=== PATIENT | male | born 1945 | race African-American/Black ===

== ENCOUNTER 2017-10-27 22:44 | Inpatient (IN) | payer MEDICARE, MEDICAID ==
[~2017-10-27] VITALS: Ht 182.9 cm; Wt 100.2 kg
--- NOTE | 2017-10-27 22:54 | NUR ---
TO BED 3 BIB PRIVATE AMBULANCE FROM [employer] [facility] FOR MED CLEARANCE. PT ON 5150 HOLD BY [employer]. PT AAOX2 NO ACUTE DISTRESS NOTED, RESP EVEN AND UNLABORED. PLACE PT ON CARDIAC MONITORING, CONTINUOUS POX. ER MD AT BEDSIDE TO EVAL PT WITH ORDERS RECEIVED.
[2017-10-27] MEDS ORDERED: PANT20TA2 PO (22:58)
[2017-10-27] MEDS ORDERED: LOSA50TA21 PO (22:58)
[2017-10-27] MEDS ORDERED: METO-357 PO (22:58)
[2017-10-27] MEDS ORDERED: DICY10CA59 PO (22:58)
[2017-10-27] MEDS ORDERED: ATOR80TA PO (22:58)
[2017-10-27] MEDS ORDERED: DOCU100C36 PO (22:58)
[2017-10-27] MEDS ORDERED: CLOP75TA15 PO (22:58)
[2017-10-27] MEDS ORDERED: FERR-58 PO (22:58)
[2017-10-27] MEDS ORDERED: LORAZEPAM INJ 2 MG/ML VIAL ONE (23:04)
[2017-10-27 23:26] LABS: BASOPHILS % (AUTO) 0.8 % (0.0-2.0); EOSINOPHILS # (AUTO) 0.1 /CMM (0.0-0.7); EOSINOPHILS % (AUTO) 0.9 % (0.0-6.0); HEMATOCRIT 31 % (39-51); HEMOGLOBIN 10.3 g/dL (13.5-17.5); LYMPHOCYTES # (AUTO) 1.3 /CMM (0.8-4.8); LYMPHOCYTES % (AUTO) 23.6 % (20.0-44.0); MEAN CORPUSCULAR HEMOGLOBIN 30 PG (26.0-33.0); MEAN CORPUSCULAR HGB CONC 34 g/dl (31.0-36.0); MEAN CORPUSCULAR VOLUME 88 fL (80-96); MONOCYTES # (AUTO) 0.1 /CMM (0.1-1.30); MONOCYTES % (AUTO) 1.2 % (2.0-12.0); NEUTROPHILS # (AUTO) 4.1 /CMM (1.8-8.9); NEUTROPHILS % (AUTO) 73.5 % (43.0-81.0); PLATELET COUNT (AUTO) 178 /CMM (150-450); RDW COEFFICIENT OF VARIATION 14.6 (11.5-15.0); RED BLOOD CELL COUNT(AUTO) 3.46 MIL/uL (4.5-6.0); WHITE BLOOD COUNT (AUTO) 5.6 K/uL (4.3-11.0)
[2017-10-27 23:28] LABS: CALCIUM, SERUM 9.4 mg/dL (8.5-10.1); CARBON DIOXIDE 22 mmol/L (21-32); CHLORIDE 112 mmol/L (98-107); CREATININE 1.7 mg/dL (0.6-1.3); GLUCOSE 105 mg/dL (74-106); POTASSIUM 3.7 mmol/L (3.5-5.1); SODIUM SERUM 149 mmol/L (136-145); UREA NITROGEN, BLOOD 23 mg/dL (7-18)
[2017-10-27] MEDS ORDERED: LORAZEPAM INJ 2 MG/ML VIAL IM ONE (23:30)
[2017-10-27 23:35] LABS: ACETAMINOPHEN 0 ug/ml (10-30); ALANINE AMINOTRANSFERASE 22 U/L (12-78); ALBUMIN 3.7 g/dL (3.4-5.0); ALCOHOL, BLOOD < 3 mg/dL (0-0); ALKALINE PHOSPHATASE 69 U/L (46-116); ASPARTATE AMINOTRANSFERASE 20 U/L (15-37); BILIRUBIN,DIRECT 0.1 mg/dL (0.0-0.2); BILIRUBIN,TOTAL 0.3 mg/dL (0.2-1.0); SALICYLATE 2.2 mg/dL (2.8-20.0)
--- NOTE | 2017-10-27 23:54 | NUR ---
REPORT CALLED TO JAZMYNE RODGERS. WILL TRANSPORT PT ROOM 215.
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
[2017-10-28] MEDS ORDERED: MAG HYDROX/AL HYDROX/SIMETH 30 ML UDC PO PRN (00:30)
[2017-10-28] MEDS ORDERED: ACETAMINOPHEN 325 MG TABLET PO PRN (00:30)
[2017-10-28] MEDS ORDERED: MAGNESIUM HYDROXIDE 30 ML UDC PO PRN (00:30)
[2017-10-28 00:38] VITALS: BP 151/66
--- NOTE | 2017-10-28 07:04 | NUR ---
GPS RN NOTE: RESPONSIBLE DEMOCRAT NOTIFIED OF THE ADMISSION
[2017-10-28] MEDS: PANTOPRAZOLE 40 MG TABLET.DR PO SCH (07:30)
[2017-10-28 08:00] VITALS: BP 131/78
[2017-10-28] MEDS: FERROUS SULFATE (325 MG) 325 MG/TAB TABLET PO SCH (09:00)
[2017-10-28] MEDS: METOPROLOL SUCCINATE 50 MG TAB.SR.24H PO SCH (09:00)
[2017-10-28] MEDS: CLOPIDOGREL BISULFATE 75 MG TABLET PO SCH (09:00)
[2017-10-28] MEDS: DOCUSATE SODIUM 100 MG CAPSULE PO SCH (09:00)
[2017-10-28] MEDS: DICYCLOMINE HCL 10 MG CAPSULE PO SCH ×3 (09:00→16:01)
[2017-10-28] MEDS: LOSARTAN POTASSIUM 50 MG TABLET PO SCH (09:00)
--- NOTE | 2017-10-28 10:17 | NUR ---
RN-CO: DR HARPER ORDERED 1:1 SITTER FOR DTS, VERY DELUSIONAL.
[2017-10-28] MEDS: OLANZAPINE 2.5 MG TABLET PO SCH ×2 (10:30→16:01)
[2017-10-28 11:46] LABS: CREATININE 1.4 mg/dL (0.6-1.3)
[2017-10-28 16:00] VITALS: BP 159/77
[2017-10-28 20:39] VITALS: BP 153/77
[2017-10-28] MEDS: ATORVASTATIN 40 MG TABLET PO SCH (21:31)
[2017-10-29 08:00] VITALS: BP 149/66
[2017-10-29] MEDS: LOSARTAN POTASSIUM 50 MG TABLET PO SCH (08:14)
[2017-10-29] MEDS: OLANZAPINE 2.5 MG TABLET PO SCH ×2 (08:14→17:10)
[2017-10-29] MEDS: DICYCLOMINE HCL 10 MG CAPSULE PO SCH ×3 (08:14→17:10)
[2017-10-29] MEDS: FERROUS SULFATE (325 MG) 325 MG/TAB TABLET PO SCH (08:14)
[2017-10-29] MEDS: DOCUSATE SODIUM 100 MG CAPSULE PO SCH (08:14)
[2017-10-29] MEDS: CLOPIDOGREL BISULFATE 75 MG TABLET PO SCH (08:14)
[2017-10-29] MEDS: PANTOPRAZOLE 40 MG TABLET.DR PO SCH (08:14)
[2017-10-29] MEDS: METOPROLOL SUCCINATE 50 MG TAB.SR.24H PO SCH (08:15)
[2017-10-29 10:02] LABS: CHOLESTEROL 149 mg/dL (<200); HDL CHOLESTEROL 45 mg/dL (40-60); LDL 89 mg/dL (0-99); TRIGLYCERIDES 117 mg/dL (30-150)
--- NOTE | 2017-10-29 14:34 | NUR ---
Discharge Planning: SW called and left a voicemail for patient's step-daughter, Karen Toney, . SW provided her direct contact information in the voicemail.
[2017-10-29 16:00] VITALS: BP 133/61
--- NOTE | 2017-10-29 16:10 | NUR ---
SW attempted to conduct the psychosocial assessment with patient today. However, patient is hard of hearing and does not understand the questions posed, even when the questions are rephrased or written out for him. Patient seems to be confused. SW to make another attempt to conduct assessment tomorrow morning [before 72-hours].
--- NOTE | 2017-10-29 16:19 | NUR ---
Discharge Planning: SW spoke with patient's step-daughter, Karen Toney, and obtained collateral information.
--- NOTE | 2017-10-29 16:32 | NUR ---
Initial Discharge Note: Patient resides at [address] [place], [place] [id number]. Patient lives with his family. Patient's family would like for him to return home upon discharge. SW spoke with patient's stepdaughter, Karen [phone]. Karen stated that the family will provide care of the patient and that they want to take him home once he is stabilized. SW to follow up with MD and to facilitate safe and proper discharge.
[2017-10-29 20:00] VITALS: BP 128/63
[2017-10-29] MEDS: ATORVASTATIN 40 MG TABLET PO SCH (21:35)
[2017-10-30] MEDS: PANTOPRAZOLE 40 MG TABLET.DR PO SCH (07:45)
[2017-10-30 08:00] VITALS: BP 132/76
[2017-10-30] MEDS: CLOPIDOGREL BISULFATE 75 MG TABLET PO SCH (08:40)
[2017-10-30] MEDS: LOSARTAN POTASSIUM 50 MG TABLET PO SCH (08:40)
[2017-10-30] MEDS: DOCUSATE SODIUM 100 MG CAPSULE PO SCH (08:41)
[2017-10-30] MEDS: FERROUS SULFATE (325 MG) 325 MG/TAB TABLET PO SCH (08:41)
[2017-10-30] MEDS: DICYCLOMINE HCL 10 MG CAPSULE PO SCH ×3 (08:41→16:07)
[2017-10-30] MEDS: METOPROLOL SUCCINATE 50 MG TAB.SR.24H PO SCH (08:41)
[2017-10-30] MEDS: OLANZAPINE 2.5 MG TABLET PO SCH ×2 (08:41→16:07)
[2017-10-30] MEDS: SERTRALINE HCL 25 MG TABLET PO SCH (13:47)
[2017-10-30 16:00] VITALS: BP 138/64
[2017-10-30 20:00] VITALS: BP 114/57
[2017-10-30] MEDS: ATORVASTATIN 40 MG TABLET PO SCH (21:19)
[2017-10-31] MEDS: PANTOPRAZOLE 40 MG TABLET.DR PO SCH (07:25)
[2017-10-31 08:05] VITALS: BP 142/57
[2017-10-31] MEDS: DICYCLOMINE HCL 10 MG CAPSULE PO SCH ×3 (08:19→16:20)
[2017-10-31] MEDS: FERROUS SULFATE (325 MG) 325 MG/TAB TABLET PO SCH (08:20)
[2017-10-31] MEDS: LOSARTAN POTASSIUM 50 MG TABLET PO SCH (08:20)
[2017-10-31] MEDS: OLANZAPINE 2.5 MG TABLET PO SCH ×2 (08:20→16:20)
[2017-10-31] MEDS: CLOPIDOGREL BISULFATE 75 MG TABLET PO SCH (08:20)
[2017-10-31] MEDS: DOCUSATE SODIUM 100 MG CAPSULE PO SCH (08:20)
[2017-10-31] MEDS: METOPROLOL SUCCINATE 50 MG TAB.SR.24H PO SCH (08:20)
[2017-10-31] MEDS: SERTRALINE HCL 25 MG TABLET PO SCH (08:21)
[2017-10-31 15:48] VITALS: BP 155/83
[2017-10-31 20:00] VITALS: BP 159/84
[2017-10-31] MEDS: ATORVASTATIN 40 MG TABLET PO SCH (21:25)
[2017-11-01] MEDS: PANTOPRAZOLE 40 MG TABLET.DR PO SCH (07:53)
[2017-11-01 08:54] VITALS: BP 148/71
[2017-11-01] MEDS: OLANZAPINE 2.5 MG TABLET PO SCH ×3 (08:55→17:48)
[2017-11-01] MEDS: SERTRALINE HCL 25 MG TABLET PO SCH (08:55)
[2017-11-01] MEDS: CLOPIDOGREL BISULFATE 75 MG TABLET PO SCH (08:55)
[2017-11-01] MEDS: METOPROLOL SUCCINATE 50 MG TAB.SR.24H PO SCH (08:55)
[2017-11-01] MEDS: LOSARTAN POTASSIUM 50 MG TABLET PO SCH (08:56)
[2017-11-01] MEDS: DICYCLOMINE HCL 10 MG CAPSULE PO SCH ×3 (08:56→17:48)
[2017-11-01] MEDS: DOCUSATE SODIUM 100 MG CAPSULE PO SCH (08:56)
[2017-11-01] MEDS: FERROUS SULFATE (325 MG) 325 MG/TAB TABLET PO SCH (08:56)
[2017-11-01 16:00] VITALS: BP 131/61
--- NOTE | 2017-11-01 17:19 | NUR ---
PATIENT WAS OBSERVED PERIODICALLY AND ASSESSED THROUGHOUT THE SHIFT FOR SUICIDAL IDEATION. PATIENT STATED THAT HE NO LONGER IS SUICIDAL. 1:1 NOT NEEDED.
[2017-11-01 19:39] VITALS: BP 119/60
[2017-11-01] MEDS: ATORVASTATIN 40 MG TABLET PO SCH (21:37)
[2017-11-02] MEDS: PANTOPRAZOLE 40 MG TABLET.DR PO SCH (07:30)
[2017-11-02 08:27] VITALS: BP 200/79
--- NOTE | 2017-11-02 08:39 | NUR ---
RN-CO: PAGED DR HARPER AND DR JOHNSON TO INFORM THAT WE CALLED CODE STROKE FOR THE PATIENT. CODE STAFF AT BED SIDE AT THIS TIME. AWAITING TO CALL BACK.
--- NOTE | 2017-11-02 08:42 | NUR ---
RN-CO: DR JOHNSON CALLED BACK AND NOTIFIED HIM THAT PATIENT WAS TRANSFERRED TO ICU FOR FURTHER EVALUATION FOR POSSIBLE STROKE V/S ARE FOLLOWS 200/79, 96, 97%, PATIENT IS UNRESPONSIVE WITH TONGUE OUT, ALSO INFORMED MD THAT WE CALLED CODE STROKE AT 0827 AM, BLOOD SUGAR WAS 105. DR HARPER CALLED BACK WITH ORDER TO DISCONTINUE HOLD AND DISCHARGE PATIENT .
--- NOTE | 2017-11-02 08:48 | NUR ---
RN-CO: TE NAGY () NOTIFIED.
[2017-11-02] MEDS: DOCUSATE SODIUM 100 MG CAPSULE PO SCH (09:00)
[2017-11-02] MEDS: OLANZAPINE 2.5 MG TABLET PO SCH ×2 (09:00→13:00)
[2017-11-02] MEDS: SERTRALINE HCL 25 MG TABLET PO SCH (09:00)
[2017-11-02] MEDS: CLOPIDOGREL BISULFATE 75 MG TABLET PO SCH (09:00)
[2017-11-02] MEDS: FERROUS SULFATE (325 MG) 325 MG/TAB TABLET PO SCH (09:00)
[2017-11-02] MEDS: DICYCLOMINE HCL 10 MG CAPSULE PO SCH ×2 (09:00→13:00)
--- NOTE | 2017-11-02 09:00 | NUR ---
FRONT DESK MONITOR- INITIAL NOTE. RECEIVED PT FROM GPS, S/P RAPID RESPONSE/ CODE STROKE. PT ARRIVED TO FLOOR VIA BED FROM CT SCAN. PT UNRESPONSIVE, DOES NOT OPEN EYES OR FOLLOW COMMANDS. 904- UPON ASSESSMENT AND ATTACHING PT TO BEDSIDE MONITOR, PT NOTED MOVING BUE AND OPENING EYES. PT WAKING UP, ATTEMPTING TO HIT STAFF, GET OUT OF BED AND VERBALLY YELLING. SAFETY MEASURES IN PLACE. 914- CALLED DR. JOHNSON AND UPDATED MD ON PT'S CHANGE OF CONDITION. PT RESTLESS. HOSPITAL MONITOR AT BEDSIDE. MD STATES HE WILL COME IN TO EVALUATE PATIENT. 924- DR. HARPER CALLED ICU UNIT. UPDATED MD ON PT'S CONDITION. MD STATES SHE WILL EVALUATE PATIENT. 929- PT NOW SLEEPING, RESTING COMFORTABLY IN BED (NO MEDS WERE GIVEN). NO LONGER RESTLESS & YELLING. HOSPITAL MONITOR AT BEDSIDE. 934- DR. JOHNSON AT BEDSIDE. UPDATED MD ON PT'S CONDITION. PT STILL SLEEPING. PER MD, OK TO TRANSFER PT BACK TO [facility]. LILIANA NUNEZ NURSE AT BEDSIDE AND AWARE. 1040- PT REMAINS IN BED, SLEEPING. WILL CONTINUE TO MONITOR. Addendum: 11/02/17 at 1045 by ALBIN MCCLURE RN 1020- PER NURSING LIQUOR BRIDGE OPERATOR HELPER, ELIZABETH SNEED, PT DOES NOT TO BE RE-ADMITTED TO ICU. OK TO BE TRANSFERRED TO [facility] UNIT PER DR. JOHNSON WITH PREVIOUS ORDERS/CHART. VITAL SIGNS STABLE. LABS WNL. CT SCAN NEGATIVE. MRI RECOMMENDED BUT UNABLE TO PERFORM DUE TO METALS.
[2017-11-02 09:30] VITALS: BP 161/93
[2017-11-02 09:33] LABS: BASOPHILS % (AUTO) 0.1 % (0.0-2.0); CALCIUM, SERUM 9.3 mg/dL (8.5-10.1); CARBON DIOXIDE 25 mmol/L (21-32); CHLORIDE 104 mmol/L (98-107); CREATININE 1.4 mg/dL (0.6-1.3); EOSINOPHILS # (AUTO) 0.1 /CMM (0.0-0.7); EOSINOPHILS % (AUTO) 1.6 % (0.0-6.0); GLUCOSE 126 mg/dL (74-106); HEMATOCRIT 29 % (39-51); HEMOGLOBIN 9.7 g/dL (13.5-17.5); LYMPHOCYTES # (AUTO) 1.6 /CMM (0.8-4.8); MEAN CORPUSCULAR HEMOGLOBIN 30 PG (26.0-33.0); MEAN CORPUSCULAR HGB CONC 34 g/dl (31.0-36.0); MEAN CORPUSCULAR VOLUME 89 fL (80-96); MONOCYTES # (AUTO) 0.4 /CMM (0.1-1.30); NEUTROPHILS # (AUTO) 4.1 /CMM (1.8-8.9); NEUTROPHILS % (AUTO) 65.3 % (43.0-81.0); PLATELET COUNT (AUTO) 166 /CMM (150-450); POTASSIUM 4.1 mmol/L (3.5-5.1); RDW COEFFICIENT OF VARIATION 14.6 (11.5-15.0); RED BLOOD CELL COUNT(AUTO) 3.25 MIL/uL (4.5-6.0); SODIUM SERUM 139 mmol/L (136-145); UREA NITROGEN, BLOOD 33 mg/dL (7-18); WHITE BLOOD COUNT (AUTO) 6.2 K/uL (4.3-11.0)
[2017-11-02 09:42] LABS: INR 0.99 (0.87-1.13)
--- NOTE | 2017-11-02 09:54 | NUR ---
RN-CO: DR HARPER NOTIFIED THAT PATIENT WILL BE BACK AT THE UNIT. DR HARPER ORDERED TO CONTINUE [address] JOHNSON TOO. TE WAS ALSO INFORMED.
[2017-11-02 10:26] VITALS: BP 200/79
[2017-11-02 10:30] VITALS: BP 157/73
--- NOTE | 2017-11-02 11:00 | NUR ---
ABA THERAPIST- REPORT GIVEN TO GEOVANNY CHARGE NURSE IN GPS. 1115- PT TRANSFERRED TO [facility] ROOM 216-1.
--- NOTE | 2017-11-02 11:08 | NUR ---
RN-CO: PATIENT IS BACK IN GPS FROM THE ICU,PER DR JOHNSON'S ORDER. REPORT WAS GIVEN BY KARI. PT WAS WHEELED TO ROOM 216 A, ASLEEP, RESPIRATION EVEN AND UNLABORED,SKIN WARM AND DRY TO TOUCH. PER KARI RN IN ICU, CT SCAN WAS TAKEN AND RESULTED NEGATIVE, PT WAS THEN UNRESPONSIVE BUT BREATHING REGULARLY. THEN AT 9:05 HE WOKE UP, MOVED, OPENED HIS EYES,TALKED, YELLED AND BECAME COMBATIVE. PER KAIR NO MEDICATIONS WAS GIVEN AT ICU, THEN PT WENT BACK TO SLEEP AT [address] HARPER ORDERED TO PUT BACK THE HOLD AND RESUME HIS PSYCH MEDS. TE , IS AWARE.
--- NOTE | 2017-11-02 11:40 | NUR ---
RN NOTE :PATIENT FOUND ON THE FLOOR BY STAFF COMMUNICATIONS CLERK , PATIENT ALERT ,NO C/O PAIN ,NO BRUISE OR BUMP SEEN AND DR. HARPER NOTIFIED ,BODY ASSESSMENT DONE ABLE TO MOVE UPPER AND LOWER EXTREMITIES ,NO SKIN TEAR NOTED VS STABLE BP 137/78 ,PULSE 88,TEMP 98.7 RESPIRATION 18 O2 SAT 99%.NEW ,PLACE PATIENT ON 1:1 SITTER FOR FALL PRECAUTION.WILL CONTINUE TO MONITOR FOR SAFETY Q15 MINUTES .
[2017-11-02] MEDS: LOSARTAN POTASSIUM 50 MG TABLET PO SCH (15:11)
[2017-11-02 15:12] VITALS: BP 157/87
[2017-11-02] MEDS: METOPROLOL SUCCINATE 50 MG TAB.SR.24H PO SCH (15:12)
== END 2017-11-02 08:45 | disposition home or self-care (01) | DRG 885 ==
LOC: ER 22:45 → GPS 23:37 → UNDODISIN 11-02 08:40
PROVIDERS: ADMIT Psychiatry & Neurology Psychosomatic Medicine; ATTEND Psychiatry & Neurology Psychosomatic Medicine
DX: F29 Unspecified psychosis not due to a substance or known physiological condition (principal); E66.9 Obesity, unspecified; E78.5 Hyperlipidemia, unspecified; F41.9 Anxiety disorder, unspecified; Z79.899 Other long term (current) drug therapy; Z86.73 Personal history of transient ischemic attack (TIA), and cerebral infarction without residual deficits; I10 Essential (primary) hypertension; K21.9 Gastro-esophageal reflux disease without esophagitis; I25.10 Atherosclerotic heart disease of native coronary artery without angina pectoris; F32.9 Major depressive disorder, single episode, unspecified; H91.90 Unspecified hearing loss, unspecified ear
CPT/HCPCS: 36415; 70450-TC; 80048-TC; 80061-TC; 80076-TC; 82565-TC; 82962-TC; 84484-TC; 85025-TC; 85730-TC; 86850-TC; A4606; G0480; J2060

== ENCOUNTER 2017-11-02 10:12 | Inpatient (IN) | payer MEDICARE, MEDICAID ==
[~2017-11-02 10:12] MED LIST: ATOR80TA PO; CLOP75TA15 PO; DICY10CA59 PO; DOCU100C36 PO; FERR-58 PO; LOSA50TA21 PO; METO-357 PO; PANT20TA2 PO
== END 2017-11-02 15:47 | DRG 885 ==
LOC: ICU 10:12
PROVIDERS: ADMIT Internal Medicine; ATTEND Internal Medicine
DX: F29 Unspecified psychosis not due to a substance or known physiological condition (principal); G93.40 Encephalopathy, unspecified; R45.851 Suicidal ideations; I10 Essential (primary) hypertension; Z73.6 Limitation of activities due to disability; I25.10 Atherosclerotic heart disease of native coronary artery without angina pectoris; K21.9 Gastro-esophageal reflux disease without esophagitis; Z86.73 Personal history of transient ischemic attack (TIA), and cerebral infarction without residual deficits; E78.5 Hyperlipidemia, unspecified; E66.9 Obesity, unspecified; F41.9 Anxiety disorder, unspecified; F32.9 Major depressive disorder, single episode, unspecified

== ENCOUNTER 2017-11-02 15:44 | Inpatient (IN) | payer MEDICARE, MEDICAID ==
[~2017-11-02] VITALS: Ht 182.9 cm; Wt 100.2 kg
[2017-11-02 16:00] VITALS: BP 146/78
[2017-11-02] MEDS ORDERED: ACETAMINOPHEN 325 MG TABLET PO PRN (17:00)
[2017-11-02] MEDS ORDERED: MAG HYDROX/AL HYDROX/SIMETH 30 ML UDC PO PRN (17:00)
[2017-11-02] MEDS ORDERED: TEMAZEPAM 7.5 MG CAPSULE PO PRN (17:00)
[2017-11-02] MEDS ORDERED: MAGNESIUM HYDROXIDE 30 ML UDC PO PRN (17:00)
[2017-11-02 19:58] VITALS: BP 151/71
[2017-11-03 07:36] LABS: ALANINE AMINOTRANSFERASE 32 U/L (12-78); ALBUMIN 3.1 g/dL (3.4-5.0); ALKALINE PHOSPHATASE 60 U/L (46-116); ASPARTATE AMINOTRANSFERASE 34 U/L (15-37); BILIRUBIN,TOTAL 0.5 mg/dL (0.2-1.0); CALCIUM, SERUM 8.8 mg/dL (8.5-10.1); CARBON DIOXIDE 27 mmol/L (21-32); CHLORIDE 108 mmol/L (98-107); CREATININE 1.5 mg/dL (0.6-1.3); GLUCOSE 93 mg/dL (74-106); POTASSIUM 3.9 mmol/L (3.5-5.1); SODIUM SERUM 144 mmol/L (136-145); TOTAL PROTEIN, SERUM 6.9 g/dL (6.4-8.2); UREA NITROGEN, BLOOD 29 mg/dL (7-18)
[2017-11-03 07:42] LABS: CHOLESTEROL 141 mg/dL (<200); HDL CHOLESTEROL 47 mg/dL (40-60); LDL 81 mg/dL (0-99); TRIGLYCERIDES 95 mg/dL (30-150)
[2017-11-03 08:01] VITALS: BP_SYST 133; BP_SYST 144; BP_DIAS 69; BP_DIAS 72
[2017-11-03 16:00] VITALS: BP 145/70
[2017-11-03 19:59] VITALS: BP 140/78
[2017-11-04 08:00] VITALS: BP 145/72
[2017-11-04] MEDS: LORAZEPAM 0.5 MG TABLET PO PRN (10:23)
[2017-11-04] MEDS: OLANZAPINE 2.5 MG TABLET PO SCH ×2 (10:23→16:17)
[2017-11-04] MEDS: DICYCLOMINE HCL 10 MG CAPSULE PO SCH ×2 (12:27→16:17)
[2017-11-04 16:00] VITALS: BP 118/62
[2017-11-04 20:00] VITALS: BP 141/72
[2017-11-04 20:16] VITALS: BP 141/72
[2017-11-04] MEDS: ATORVASTATIN 40 MG TABLET PO SCH (21:30)
[2017-11-05 08:00] VITALS: BP 137/68
[2017-11-05] MEDS: PANTOPRAZOLE 40 MG TABLET.DR PO SCH (08:33)
[2017-11-05] MEDS: DICYCLOMINE HCL 10 MG CAPSULE PO SCH ×3 (08:34→16:55)
[2017-11-05] MEDS: OLANZAPINE 2.5 MG TABLET PO SCH ×5 (08:34→21:45)
[2017-11-05] MEDS: FERROUS SULFATE (325 MG) 325 MG/TAB TABLET PO SCH (08:37)
[2017-11-05] MEDS: DOCUSATE SODIUM 100 MG CAPSULE PO SCH (08:37)
[2017-11-05] MEDS: CLOPIDOGREL BISULFATE 75 MG TABLET PO SCH (08:37)
[2017-11-05] MEDS: METOPROLOL SUCCINATE 50 MG TAB.SR.24H PO SCH (08:38)
[2017-11-05] MEDS: LOSARTAN POTASSIUM 50 MG TABLET PO SCH (08:38)
[2017-11-05 15:46] VITALS: BP 136/69
[2017-11-05 20:00] VITALS: BP 119/63
[2017-11-05] MEDS: ATORVASTATIN 40 MG TABLET PO SCH (21:45)
[2017-11-06 08:00] VITALS: BP 134/80
[2017-11-06] MEDS: FERROUS SULFATE (325 MG) 325 MG/TAB TABLET PO SCH (08:52)
[2017-11-06] MEDS: CLOPIDOGREL BISULFATE 75 MG TABLET PO SCH (08:53)
[2017-11-06] MEDS: DICYCLOMINE HCL 10 MG CAPSULE PO SCH ×3 (08:53→16:37)
[2017-11-06] MEDS: DOCUSATE SODIUM 100 MG CAPSULE PO SCH (08:53)
[2017-11-06] MEDS: LOSARTAN POTASSIUM 50 MG TABLET PO SCH (08:53)
[2017-11-06] MEDS: PANTOPRAZOLE 40 MG TABLET.DR PO SCH (08:53)
[2017-11-06] MEDS: OLANZAPINE 2.5 MG TABLET PO SCH ×4 (08:53→16:37)
[2017-11-06] MEDS: METOPROLOL SUCCINATE 50 MG TAB.SR.24H PO SCH (08:54)
[2017-11-06 16:00] VITALS: BP_SYST 104; BP_SYST 113; BP_DIAS 56; BP_DIAS 78
[2017-11-06 20:00] VITALS: BP 118/58
[2017-11-06] MEDS: ATORVASTATIN 40 MG TABLET PO SCH (21:16)
[2017-11-07] MEDS: PANTOPRAZOLE 40 MG TABLET.DR PO SCH (07:51)
[2017-11-07 08:00] VITALS: BP 139/68
[2017-11-07] MEDS: DICYCLOMINE HCL 10 MG CAPSULE PO SCH ×3 (08:23→16:45)
[2017-11-07] MEDS: DOCUSATE SODIUM 100 MG CAPSULE PO SCH (08:23)
[2017-11-07] MEDS: CLOPIDOGREL BISULFATE 75 MG TABLET PO SCH (08:23)
[2017-11-07] MEDS: FERROUS SULFATE (325 MG) 325 MG/TAB TABLET PO SCH (08:23)
[2017-11-07] MEDS: OLANZAPINE 2.5 MG TABLET PO SCH ×3 (08:23→16:45)
[2017-11-07] MEDS: METOPROLOL SUCCINATE 50 MG TAB.SR.24H PO SCH (08:23)
[2017-11-07] MEDS: LOSARTAN POTASSIUM 50 MG TABLET PO SCH (08:24)
[2017-11-07] MEDS: LORAZEPAM 0.5 MG TABLET PO PRN (15:49)
[2017-11-07 16:00] VITALS: BP 145/96
[2017-11-07 20:00] VITALS: BP 137/65
[2017-11-07] MEDS: ATORVASTATIN 40 MG TABLET PO SCH (21:11)
[2017-11-08 08:00] VITALS: BP 127/70
[2017-11-08] MEDS: DICYCLOMINE HCL 10 MG CAPSULE PO SCH ×3 (09:30→16:51)
[2017-11-08] MEDS: FERROUS SULFATE (325 MG) 325 MG/TAB TABLET PO SCH (09:30)
[2017-11-08] MEDS: DOCUSATE SODIUM 100 MG CAPSULE PO SCH (09:31)
[2017-11-08] MEDS: OLANZAPINE 2.5 MG TABLET PO SCH ×3 (09:31→16:51)
[2017-11-08] MEDS: LOSARTAN POTASSIUM 50 MG TABLET PO SCH (09:31)
[2017-11-08] MEDS: METOPROLOL SUCCINATE 50 MG TAB.SR.24H PO SCH (09:31)
[2017-11-08] MEDS: CLOPIDOGREL BISULFATE 75 MG TABLET PO SCH (09:31)
[2017-11-08] MEDS: PANTOPRAZOLE 40 MG TABLET.DR PO SCH (09:32)
[2017-11-08] MEDS: SERTRALINE HCL 25 MG TABLET PO SCH (09:35)
[2017-11-08] MEDS: LORAZEPAM 0.5 MG TABLET PO PRN ×2 (09:38→16:51)
[2017-11-08 16:07] VITALS: BP 109/58
[2017-11-08 19:53] VITALS: BP 121/63
[2017-11-08] MEDS: ATORVASTATIN 40 MG TABLET PO SCH (21:48)
[2017-11-09 08:00] VITALS: BP 125/62
[2017-11-09] MEDS: CLOPIDOGREL BISULFATE 75 MG TABLET PO SCH (08:39)
[2017-11-09] MEDS: DICYCLOMINE HCL 10 MG CAPSULE PO SCH ×2 (08:39→13:30)
[2017-11-09] MEDS: OLANZAPINE 2.5 MG TABLET PO SCH ×2 (08:39→13:30)
[2017-11-09] MEDS: FERROUS SULFATE (325 MG) 325 MG/TAB TABLET PO SCH (08:39)
[2017-11-09] MEDS: METOPROLOL SUCCINATE 50 MG TAB.SR.24H PO SCH (08:40)
[2017-11-09] MEDS: PANTOPRAZOLE 40 MG TABLET.DR PO SCH (08:40)
[2017-11-09] MEDS: DOCUSATE SODIUM 100 MG CAPSULE PO SCH (08:40)
[2017-11-09] MEDS: LOSARTAN POTASSIUM 50 MG TABLET PO SCH (08:41)
[2017-11-09] MEDS: SERTRALINE HCL 25 MG TABLET PO SCH (08:41)
[2017-11-09 16:00] VITALS: BP 133/72
== END 2017-11-09 16:00 | disposition home or self-care (01) | DRG 885 ==
LOC: GPS 15:44
PROVIDERS: ADMIT Psychiatry & Neurology Psychosomatic Medicine; ATTEND Psychiatry & Neurology Psychosomatic Medicine
DX: F29 Unspecified psychosis not due to a substance or known physiological condition (principal); N18.9 Chronic kidney disease, unspecified; E66.9 Obesity, unspecified; E78.5 Hyperlipidemia, unspecified; F41.9 Anxiety disorder, unspecified; I12.9 Hypertensive chronic kidney disease with stage 1 through stage 4 chronic kidney disease, or unspecified chronic kidney disease; H54.7 Unspecified visual loss; H91.90 Unspecified hearing loss, unspecified ear; Z73.6 Limitation of activities due to disability; Z86.73 Personal history of transient ischemic attack (TIA), and cerebral infarction without residual deficits; F32.9 Major depressive disorder, single episode, unspecified; K21.9 Gastro-esophageal reflux disease without esophagitis; Z68.30 Body mass index [BMI] 30.0-30.9, adult
CPT/HCPCS: 36415; 80053-TC; 80061-TC; 87081-TC; 97110-TC; 97530-TC